=== PATIENT | male | born 1990 | race Caucasian/White ===

== ENCOUNTER 2020-01-29 01:31 | Emergency (ER) | payer MEDICAID ==
[~2020-01-29] VITALS: Ht 180.3 cm; Wt 79.0 kg
[2020-01-29] MEDS ORDERED: ACETAMINOPHEN 325MG TABLET PO STA (02:10)
[2020-01-29] MEDS ORDERED: BACITRACIN ZINC OINT UDPKT TOP SCH (03:30)
[2020-01-29 04:15] VITALS: BP 122/74
== END 2020-01-29 04:16 | disposition home or self-care (01) ==
LOC: ER 01:31
DX: S00.83XA Contusion of other part of head, initial encounter (principal); W22.09XA Striking against other stationary object, initial encounter; Y93.39 Activity, other involving climbing, rappelling and jumping off; Y92.9 Unspecified place or not applicable
CPT/HCPCS: 99284